=== PATIENT | female | born 1980 | race Hispanic/Latino ===

== ENCOUNTER 2023-11-12 16:48 | Emergency (ER) | payer OTHER ==
[~2023-11-12] VITALS: Ht 154.9 cm; Wt 74.8 kg
[2023-11-12] MEDS: KETOROLAC 30MG VIAL (30MG/ML) IVP ONE (18:31)
[2023-11-12 19:00] VITALS: BP 118/77; PULSE 70; RESP 18; O2SAT 99
[2023-11-12] MEDS ORDERED: IBUP-2070 PO (19:14)
[2023-11-12] MEDS ORDERED: CYCL-309 PO (19:14)
== END 2023-11-12 19:30 | disposition home or self-care (01) ==
LOC: EDBD 16:48 → EDH 16:48
DX: S16.1XXA Strain of muscle, fascia and tendon at neck level, initial encounter (principal); S39.012A Strain of muscle, fascia and tendon of lower back, initial encounter; V89.2XXA Person injured in unspecified motor-vehicle accident, traffic, initial encounter; Y93.I9 Activity, other involving external motion; Y92.488 Other paved roadways as the place of occurrence of the external cause; Y99.8 Other external cause status; I10 Essential (primary) hypertension; E78.00 Pure hypercholesterolemia, unspecified; Z90.49 Acquired absence of other specified parts of digestive tract; Z98.890 Other specified postprocedural states
CPT/HCPCS: 99285; 70450; 96374; 72125; 71250; 74176; J1885